=== PATIENT | female | born 1995 | race Caucasian/White ===

== ENCOUNTER 2016-10-22 15:51 | Emergency (ER) | payer SELFPAY ==
[~2016-10-22 15:51] MED LIST: PREN1CHW PO
[2016-10-22 15:52] VITALS: BP 144/77; PULSE 89; RESP 15; TEMP 98.2; O2SAT 98
--- NOTE | 2016-10-22 16:01 | PD ---
Physical Exam Time Seen by Provider: 16:00 Narrative 21 y/o female here with dental pain for 2 weeks. She says she chipped a tooth. Currently taking antibiotics, ibuprofen but pain persists. Vital signs reviewed. Seen at triage desk. Awaiting bed placement. Data Data Last Documented VS Vital Signs Date Time Temp Pulse Resp B/P Pulse Ox O2 Delivery O2 Flow Rate FiO2 10/22/16 15:52 98.2 89 15 144/77 98 MDM Medical Record Reviewed: Yes Supervised Visit with COLEMAN: No Warner Trivedi Oct 22, 2016 16:01
--- NOTE | 2016-10-22 16:37 | PD ---
HPI Chief Complaint: Oral / Dental Pain or Problem Time Seen by Provider: 16:32 Travel History International Travel<30 days: No Contact w/Intl Traveler<30days: No Traveled to known affect area: No History of Present Illness HPI 21-year-old female presents the emergency Department with dental pain and abscess to the #16 tooth. Patient states she's been on penicillin for the last 2 days. Patient states the swelling seems to improve but her pain continues. Patient was given ibuprofen but this is not helping. She's been using [id number] Orajel with some relief, however she complains of sensitivity to hot and cold and difficulty eating due to the pain. She denies swelling or difficulty swallowing. She denies fever or chills. Patient does have a appointment with a dentist next Tuesday. She has no known drug allergies. PFSH Past Medical History : 3 Para: 1 Past Surgical History Section: Yes Other Surgery: Yes () Social History Alcohol Use: No Tobacco Use: No Substance Use: No Allergies-Medications (Allergen,Severity, Reaction): Coded Allergies: No Known Allergies (Unverified , 04/21/16) Reported Meds & Prescriptions Reported Meds & Active Scripts Active Reported Select-Ob 29-0.6-0.4 mg ( Vit W/ Iron Polysacch) 1 Chw Chw PO Review of Systems Except as stated in HPI: all other systems reviewed are Neg General / Constitutional: No: Fever Eyes: No: Visual changes HENT: Positive: Dental Difficulties, Earache, No: Headaches, Vertigo, Lightheadedness, Sore Throat, Rhinitis, Rhinorrhea, Congestion, Nosebleed, Neck Stiffness, Neck Pain, Masses, Gingival Bleeding, Ear Discharge, Other Cardiovascular: No: Chest Pain or Discomfort Respiratory: No: Shortness of Breath Gastrointestinal: No: Abdominal Pain Genitourinary: No: Dysuria Musculoskeletal: No: Pain Skin: No Rash Neurologic: No: Weakness Psychiatric: No: Depression Endocrine: No: Polydipsia Hematologic/Lymphatic: No: Easy Bruising Physical Exam Narrative GENERAL: Patient appears in mild to moderate distress. SKIN: Warm and dry. Normal color. Normal turgor. HEAD: Atraumatic. Normocephalic. EYES: Pupils equal and round. No scleral icterus. No injection or drainage. ENT: No nasal bleeding or discharge. Mucous membranes pink and moist. Patient' s large caries to the #16 tooth with localized tenderness and swelling. No significant dental abscess is noted. TMs are clear bilaterally. Pharynx is clear. Airway is patent. NECK: Trachea midline. Supple and nontender without lymphadenopathy. CARDIOVASCULAR: Regular rate and rhythm. No murmurs gallops or rubs. RESPIRATORY: No accessory muscle use. Clear to auscultation. Breath sounds equal bilaterally. MUSCULOSKELETAL: Extremities without clubbing, cyanosis, or edema. No obvious deformities. NEUROLOGICAL: Awake and alert. No obvious cranial nerve deficits. Motor grossly within normal limits. Five out of 5 muscle strength in the arms and legs. Normal speech. PSYCHIATRIC: Appropriate mood and affect; insight and judgment normal. Data Data Last Documented VS Vital Signs Date Time Temp Pulse Resp B/P Pulse Ox O2 Delivery O2 Flow Rate FiO2 10/22/16 15:52 98.2 89 15 144/77 98 Orders Mzqq-Gfwp-Rnzr Liq (Magic Mouthwash Adul (10/22/16 16:45) [facility] Medical Decision Making Medical Screen Exam Complete: Yes Emergency Medical Condition: Yes Differential Diagnosis Dental caries. Dental abscess. Dental pain. Narrative Course Patient is medically stable at time of exam. Trial of Magic mouthwash by mouth, is given to the patient. Patient feels improvement after the Magic mouthwash. Patient will be continued Magic mouthwash 5-10 mL's every 2 hours when necessary dental pain. 120 mg with 1 refill. Patient is given a prescription for ibuprofen 600 mg 4 times a day #40. Patient also given a prescription for acetaminophen 500 mg 2 tabs every 6 hours when necessary #60. Patient is to continue the penicillin as previously prescribed. Patient should follow-up with her dentist as currently scheduled. Patient can return to emergency Department with worsening symptoms if necessary. Diagnosis Primary Impression: Dental caries Additional Impression: Pain due to dental caries Referrals: Dentist Patient Instructions: Dental Abscess (ED), General Instructions Additional Instructions: Trial of Magic mouthwash by mouth, is given to the patient. Patient feels improvement after the Magic mouthwash. Patient will be continued Magic mouthwash 5-10 mL's every 2 hours when necessary dental pain. 120 mg with 1 refill. Patient is given a prescription for ibuprofen 600 mg 4 times a day #40. Patient also given a prescription for acetaminophen 500 mg 2 tabs every 6 hours when necessary #60. Patient is to continue the penicillin as previously prescribed. Patient should follow-up with her dentist as currently scheduled. Patient can return to emergency Department with worsening symptoms if necessary. Med/Other Pt SpecificInfo: Prescription(s) given Disposition: 01 DISCHARGE HOME Condition: Stable Gary Duval Oct 22, 2016 16:37
[2016-10-22] MEDS ORDERED: NYSTAT/DIPHENHY/LIDO MOUTHWASH (Adult) 120ML SWISH-SPIT ONE (16:45)
[2016-10-22] MEDS ORDERED: NON-500T13 PO (16:57)
[2016-10-22] MEDS ORDERED: IBUP-232 PO (16:57)
[2016-10-22] MEDS ORDERED: MAGICADU2 SWISH-SPIT (16:57)
== END 2016-10-22 17:33 | disposition home or self-care (01) ==
LOC: NEPK 15:51
DX: K02.9 Dental caries, unspecified (principal)
CPT/HCPCS: 99283

== ENCOUNTER 2016-10-29 13:55 | Emergency (ER) | payer SELFPAY ==
[~2016-10-29] VITALS: Ht 165.1 cm; Wt 50.0 kg
[~2016-10-29 13:55] MED LIST changes: +IBUP-232 PO; +MAGICADU2 SWISH-SPIT; +NON-500T13 PO
[2016-10-29 13:56] VITALS: BP 146/95; PULSE 85; RESP 24; TEMP 98.5; O2SAT 99
--- NOTE | 2016-10-29 14:00 | PD ---
Data Data Last Documented VS Vital Signs Date Time Temp Pulse Resp B/P Pulse Ox O2 Delivery O2 Flow Rate FiO2 10/29/16 13:56 98.5 85 24 146/95 99 Room Air MDM Supervised Visit with COLEMAN: No Narrative Course 21 YO F with complaint of "wisdom tooth" pain. Intermittent for "weeks." Recently completed antibiotics, has seen a dentist. Vitals reviewed. Awaiting bed placement. Sabrina Louis Oct 29, 2016 14:00
--- NOTE | 2016-10-29 14:22 | PD ---
HPI Chief Complaint: Oral / Dental Pain or Problem Time Seen by Provider: 14:21 Travel History International Travel<30 days: No Contact w/Intl Traveler<30days: No Traveled to known affect area: No History of Present Illness HPI 21-year-old female presents emergency Department with complaint of a crack to her left upper wisdom tooth that is causing her pain on and off for the past few weeks. She saw a dentist and was put on antibiotics but she has completed and they will not see her again because she cannot afford to pay, and they will not set her up on a payment plan. She was also seen here on October 22 for the same complaint. Denies fever, vomiting. Pain is worse with hot and cold. She has been using Magic mouthwash, Orajel, and taking ibuprofen with no relief of symptoms. She has no other medical complaints. No known allergies. No other modifying factors or associated signs and symptoms. PFSH Past Medical History ?: Not : 3 Para: 1 Past Surgical History Section: Yes Other Surgery: Yes () Social History Alcohol Use: No Tobacco Use: Yes Substance Use: No Allergies-Medications (Allergen,Severity, Reaction): Coded Allergies: No Known Allergies (Unverified , 10/29/16) Reported Meds & Prescriptions Reported Meds & Active Scripts Active Magic Mouthwash Adult Liq (Multi-Ingredient Mouthwash/Gargle) 120 Ml Susp 5-10 Ml SWISH-SPIT ACHS Each 5 mL contains: Nystatin 200,000 units, Diphenhydramine 4.25 mg, Viscous Lidocaine 10 mg, Davis syrup 0.8 mL Ibuprofen 600 Mg Tab 600 Mg PO Q6H PRN Non-Aspirin Pain Relief ES (Acetaminophen) 500 Mg Tab 500 Mg PO Q6HR PRN Reported Select-Ob 29-0.6-0.4 mg ( Vit W/ Iron Polysacch) 1 Chw Chw PO Review of Systems Except as stated in HPI: all other systems reviewed are Neg Physical Exam Narrative GENERAL: Well-nourished, well-developed female patient, in no acute distress; afebrile, nontoxic-appearing; tearful SKIN: Warm and dry. HEAD: Atraumatic. Normocephalic. No facial edema, erythema, tenderness on palpation. No lymphadenopathy. EYES: Pupils equal and round. No scleral icterus. No injection or drainage. ENT: Mucosa pink and moist. Airway patent. MOUTH: Mucous membranes moist, no lesions, tongue and gums appear normal. Tooth #16 with part of the tooth missing.. Surrounding gingiva is without erythema, edema, drainage. No obvious abscess noted. NECK: Trachea midline. No lymphadenopathy. CARDIOVASCULAR: Regular rate. RESPIRATORY: No accessory muscle use. GASTROINTESTINAL: Flat. MUSCULOSKELETAL: No obvious deformities. No clubbing. No cyanosis. No edema. NEUROLOGICAL: Awake and alert. Oriented 3. No obvious cranial nerve deficits. Motor grossly within normal limits. Normal speech. PSYCHIATRIC: Appropriate mood and affect; insight and judgment normal. Data Data Last Documented VS Vital Signs Date Time Temp Pulse Resp B/P Pulse Ox O2 Delivery O2 Flow Rate FiO2 10/29/16 13:56 98.5 85 24 146/95 99 Room Air Orders Ketorolac Inj (Toradol Inj) (10/29/16 14:30) MDM Medical Decision Making Medical Screen Exam Complete: Yes Emergency Medical Condition: Yes Medical Record Reviewed: Yes Differential Diagnosis Dentalgia, cracked tooth, dental trauma, infected dental caries Narrative Course 21-year-old female with left upper wisdom tooth that is cracked and causing tooth pain. Patient was previously treated with penicillin and has not followed up with a dentist due to finances. She is afebrile and nontoxic- appearing. She denies fever, vomiting. Emergency information dental sheet provided. Instructed patient to follow up with dentist. Toradol administered in the ER. Patient verbalizes understanding and agreement with treatment plan. Patient is medically cleared and stable for discharge. Discussed reasons to return to the emergency department. Instructed patient to follow up with primary care provider. Patient agrees with treatment plan. The patients vital signs are stable and the patient is stable for outpatient follow-up and treatment. Patient discharged home, stable and in no acute distress. Diagnosis Primary Impression: Cracked tooth Additional Impression: Dentalgia Referrals: [facility] Dentist Primary Care Physician Patient Instructions: General Instructions, Toothache (ED) Departure Forms: Tests/Procedures Additional Instructions: Complete full course of antibiotics Ibuprofen or Tylenol as directed and as needed to reduce pain and inflammation Use Magic mouthwash rinse as directed and as needed to decrease pain Warm or cool compresses to the affected area Follow-up with dentist Follow-up with primary care provider Return to emergency department immediately with worsening of symptoms Med/Other Pt SpecificInfo: No Change to Meds, No Meds Exist/No RX given Disposition: 01 DISCHARGE HOME Condition: Stable Lynn Koo Oct 29, 2016 14:22
[2016-10-29] MEDS ORDERED: KETOROLAC TROMETHAMINE 60 MG/2 ML (IM) VIAL IM ONE (14:30)
== END 2016-10-29 14:57 | disposition home or self-care (01) ==
LOC: NEPK 13:55
DX: K03.81 Cracked tooth (principal); Z72.0 Tobacco use
CPT/HCPCS: 96372; 99284; J1885

== ENCOUNTER 2016-10-31 09:54 | Emergency (ER) | payer SELFPAY ==
[~2016-10-31] VITALS: Ht 165.1 cm; Wt 50.0 kg
[2016-10-31 09:59] VITALS: BP 138/80; PULSE 77; RESP 15; TEMP 98.2; O2SAT 98
[2016-10-31] MEDS ORDERED: LIDOCAINE HCL 1% PF 30 ML VIAL INFIL ONE (10:45)
[2016-10-31] MEDS ORDERED: BUPIVACAINE HCL PF 0.5% 10 ML VIAL INFIL ONE (10:45)
[2016-10-31] MEDS ORDERED: MAGICADU2 SWISH-SWAL (10:47)
[2016-10-31] MEDS ORDERED: DICL75TA PO (10:47)
--- NOTE | 2016-10-31 10:52 | PD ---
HPI Chief Complaint: Oral / Dental Pain or Problem Time Seen by Provider: 10:35 Travel History International Travel<30 days: No Contact w/Intl Traveler<30days: No Traveled to known affect area: No History of Present Illness HPI 21-year-old female presents for evaluation of dental pain. Symptoms started 2 weeks ago. The pain is a throbbing pain, constant, localized to the left maxillary third molar, pain is worse with chewing, unrelieved with over-the- counter Tylenol and Motrin. This is her third visit here for evaluation of this dental pain. She reports that she has an appointment with a dentist in 2 days in order to have the tooth extracted. She has no other complaints at this time. PFSH Past Medical History ?: Not : 3 Para: 1 Past Surgical History Section: Yes Other Surgery: Yes () Social History Alcohol Use: No Tobacco Use: Yes Substance Use: No Allergies-Medications (Allergen,Severity, Reaction): Coded Allergies: No Known Allergies (Unverified , 10/31/16) Reported Meds & Prescriptions Reported Meds & Active Scripts Active Magic Mouthwash Adult Liq (Multi-Ingredient Mouthwash/Gargle) 120 Ml Susp 10 Ml SWISH-SWAL ACHS Each 5mL contains: Nystatin 200,000units, Diphenhydramine 4.25mg, Viscous Lidocaine 10mg, Davis syrup 0.[address] (Diclofenac Sodium) 75 Mg Tabdr 75 Mg PO BID 7 Days Review of Systems General / Constitutional: No: Fever, Chills HENT: Positive: Dental Difficulties Physical Exam Narrative GENERAL: Well-developed well-nourished female in no acute distress SKIN: Warm and dry. HEAD: Atraumatic. Normocephalic. EYES: Pupils equal and round. No scleral icterus. No injection or drainage. ENT: No nasal bleeding or discharge. Mucous membranes pink and moist. Left maxillary third molar somewhat decayed, tender to palpation. There is no gingival edema, facial pain, trismus. NECK: Trachea midline. No JVD. No lymphadenopathy or submandibular edema. Data Data Last Documented VS Vital Signs Date Time Temp Pulse Resp B/P Pulse Ox O2 Delivery O2 Flow Rate FiO2 10/31/16 09:59 98.2 77 15 138/80 98 Orders Lidocaine Pf 1% Inj (Xylocaine-Mpf 1% In (10/31/16 10:45) Bupivacaine Pf 0.5% Inj (Marcaine Pf 0.5 (10/31/16 10:45) MDM Medical Decision Making Medical Screen Exam Complete: Yes Emergency Medical Condition: Yes Medical Record Reviewed: Yes Differential Diagnosis Dental caries, pulpitis, pericoronitis, periodontal abscess, dental fracture Narrative Course 21-year-old female presents with dental pain localized to the left maxillary third molar. After verbal consent was obtained a posterior superior alveolar nerve block was performed with complete resolution of her pain. One percent lidocaine, 0.5% Marcaine was utilized. Discharged with nonnarcotic pain medication. Procedures Procedure Narrative Posterior superior alveolar nerve block: Performed using total of 3 mL of 1% lidocaine, 0.5% Marcaine. Patient tolerated procedure well. Diagnosis Primary Impression: Dentalgia Additional Instructions: Follow-up with dentist as scheduled for definitive therapy. Medication as needed. Med/Other Pt SpecificInfo: Prescription(s) given Scripts Wrhzljau-Nmceigfbwxmquge-Hslcbxxrp Liq (Magic Mouthwash Adult Liq)120 Ml Susp10 Ml SWISH-SWAL ACHS #120 ML Ref 1 Each 5mL contains: Nystatin 200,000units, Diphenhydramine 4.25mg, Viscous Lidocaine 10mg, Davis syrup 0.8 mL Prov:Malika Euceda MD 10/31/[address] 75 Mg Tabdr75 Mg PO BID 7 Days Ref 0 Prov:aMlika Euceda MD 10/31/16 Disposition: 01 DISCHARGE HOME Condition: Stable Warner Trivedi Oct 31, 2016 10:52
== END 2016-10-31 11:05 | disposition home or self-care (01) ==
LOC: NEPA 09:54
DX: K08.89 Other specified disorders of teeth and supporting structures (principal); Z72.0 Tobacco use
CPT/HCPCS: 64400

== ENCOUNTER 2017-05-10 10:36 | Emergency (ER) | payer SELFPAY ==
[~2017-05-10] VITALS: Ht 165.1 cm; Wt 55.0 kg
[2017-05-10 10:36] VITALS: BP 114/61; PULSE 87; RESP 16; TEMP 98.6; O2SAT 98
[~2017-05-10 10:36] MED LIST changes: +DICL75TA PO; -IBUP-232 PO; -MAGICADU2 SWISH-SPIT; +MAGICADU2 SWISH-SWAL; -NON-500T13 PO; -PREN1CHW PO
[2017-05-10] MEDS ORDERED: PENI500T PO (11:15)
--- NOTE | 2017-05-10 11:15 | PD ---
HPI Chief Complaint: ENT Complaint Time Seen by Provider: 10:47 Travel History International Travel<30 days: No Contact w/Intl Traveler<30days: No Traveled to known affect area: No History of Present Illness HPI This is a 21-year-old female here with sore throat and fever times one day. She reports her son has strep pharyngitis. Symptom severity is mild. No aggravating or alleviating factors. PFSH Past Medical History Medical History: Denies Significant Hx ?: Not LMP: 04/2017 : 3 Para: 1 Past Surgical History Section: Yes Other Surgery: Yes () Social History Alcohol Use: No Tobacco Use: Yes Substance Use: No Allergies-Medications (Allergen,Severity, Reaction): Coded Allergies: No Known Allergies (Unverified Adverse Reaction, Unknown, 05/10/17) Reported Meds & Prescriptions Reported Meds & Active Scripts Active No Active Prescriptions or Reported Medications Review of Systems General / Constitutional: Positive: Fever HENT: Positive: Sore Throat Physical Exam Narrative GENERAL: Alert female well-appearing. SKIN: Warm and dry. HEAD: Normocephalic. EYES: No scleral icterus. No injection or drainage. THROAT: Pharyngeal erythema with mild tonsillar hypertrophy small amount x-ray. NECK: Supple, trachea midline. No JVD or lymphadenopathy. No meningismus. Data Data Last Documented VS Vital Signs Date Time Temp Pulse Resp B/P (MAP) Pulse Ox O2 Delivery O2 Flow Rate FiO2 05/10/17 10:36 98.6 87 16 114/61 (78) 98 Room Air MDM Medical Decision Making Medical Screen Exam Complete: Yes Emergency Medical Condition: Yes Differential Diagnosis Strep pharyngitis, viral pharyngitis, URI Narrative Course 21-year-old female here with sore throat. Exposure to strep pharyngitis. Patient has mild tonsillar hypertrophy with exudate. She'll be treated with Pen -Vee K Diagnosis Primary Impression: Pharyngitis Qualified Codes: J02.9 - Acute pharyngitis, unspecified Referrals: [facility] Departure Forms: Tests/Procedures, Work Release Enter return to work date: May 11, 2017 Scripts Penicillin V Potassium (Penicillin V Potassium) 500 Mg Tab 500 MG PO BID for Infection for 10 Days, #20 TAB 0 Refills Prov: Alie Pradhan 05/10/17 Disposition: 01 DISCHARGE HOME Condition: Stable Alie Pradhan May 10, 2017 11:15
== END 2017-05-10 11:38 | disposition home or self-care (01) ==
LOC: NEPK 10:36
DX: J02.9 Acute pharyngitis, unspecified (principal); Z72.0 Tobacco use
CPT/HCPCS: 99283

== ENCOUNTER 2017-06-03 08:51 | Emergency (ER) | payer SELFPAY ==
[~2017-06-03] VITALS: Ht 165.1 cm; Wt 55.0 kg
[~2017-06-03 08:51] MED LIST changes: -DICL75TA PO; -MAGICADU2 SWISH-SWAL; +PENI500T PO
[2017-06-03 08:53] VITALS: BP 106/56; PULSE 122; RESP 12; TEMP 100.7; O2SAT 97
== END 2017-06-03 11:20 | disposition left against medical advice (07) ==
LOC: NED 08:51
DX: J00 Acute nasopharyngitis [common cold] (principal)
CPT/HCPCS: 99281

== ENCOUNTER 2017-10-30 17:40 | Emergency (ER) | payer SELFPAY ==
[~2017-10-30] VITALS: Ht 165.1 cm; Wt 50.9 kg
[2017-10-30 17:43] VITALS: BP 104/67; PULSE 81; RESP 16; TEMP 98.3; O2SAT 96
[2017-10-30] MEDS ORDERED: SODIUM CHLOR 0.9% 1000 ML INJ 1,000 ML IV SCH (18:40)
--- NOTE | 2017-10-30 18:42 | PD ---
HPI Chief Complaint: GI Complaint Time Seen by Provider: 18:30 Travel History International Travel<30 days: No Contact w/Intl Traveler<30days: No Traveled to known affect area: No History of Present Illness HPI Patient presents for abdominal pain secondary to possible "alcohol poisoning." She states that she had 5 shots and 5 drinks on yesterday and has had abdominal pain nausea vomiting since. Pain is described as being epigastric, 7 out of 10 , constant, nonradiating, worse with eating, no alleviating factors. Is also reporting vomiting clear/yellow fluid. Ports 8 out of 10 headache, but denies fall or hitting her head or LOC. Unsure fever or chills but states that she has had cold sweats and denies back pain. PFSH Past Medical History ?: Not LMP: 10/05/2017 : 3 Para: 1 Past Surgical History Section: Yes Other Surgery: Yes () Social History Alcohol Use: No Tobacco Use: Yes Substance Use: No Allergies-Medications (Allergen,Severity, Reaction): Coded Allergies: No Known Allergies (Unverified Adverse Reaction, Unknown, 10/30/17) Reported Meds & Prescriptions Reported Meds & Active Scripts Active Penicillin V Potassium 500 Mg Tab 500 Mg PO BID 10 Days Review of Systems Except as stated in HPI: all other systems reviewed are Neg Physical Exam Narrative GENERAL: No acute distress. SKIN: Focused skin assessment warm/dry. HEAD: Atraumatic. Normocephalic. EYES: Pupils equal and round. No scleral icterus. No injection or drainage. ENT: No nasal bleeding or discharge. Mucous membranes dry. NECK: Trachea midline. No JVD. CARDIOVASCULAR: Regular rate and rhythm. No murmur appreciated. RESPIRATORY: No accessory muscle use. Clear to auscultation. Breath sounds equal bilaterally. GASTROINTESTINAL: Abdomen soft, epigastric tenderness, nondistended. Hepatic and splenic margins not palpable. MUSCULOSKELETAL: No obvious deformities. No clubbing. No cyanosis. No edema. NEUROLOGICAL: Awake and alert. No obvious cranial nerve deficits. Motor grossly within normal limits. Normal speech. PSYCHIATRIC: Appropriate mood and affect; insight and judgment normal. Data Data Last Documented VS Vital Signs Date Time Temp Pulse Resp B/P (MAP) Pulse Ox O2 Delivery O2 Flow Rate FiO2 10/30/17 17:43 98.3 81 16 104/67 (79) 96 Orders Orders Complete Blood Count With Diff (10/30/17 18:40) Comprehensive Metabolic Panel (10/30/17 18:40) Lipase (10/30/17 18:40) Ct Abd/Pel W Iv Contrast(Rout) (10/30/17 18:40) Iv Access Insert/Monitor (10/30/17 18:40) Ecg Monitoring (10/30/17 18:40) Oximetry (10/30/17 18:40) Sodium Chlor 0.9% 1000 Ml Inj (Ns 1000 M (10/30/17 18:40) Sodium Chloride 0.9% Flush (Ns Flush) (10/30/17 18:45) Ed Urine Pregnancytest Poc (10/30/17 18:40) Ondansetron Odt (Zofran Odt) (10/30/17 18:45) Morphine Inj (Morphine Inj) (10/30/17 18:45) MDM Medical Decision Making Medical Screen Exam Complete: Yes Emergency Medical Condition: Yes Differential Diagnosis Gastritis, peptic ulcer disease, pancreatitis, cholecystitis, Narrative Course She presents to the emergency department complaining of abdominal pain and nausea vomiting after alcohol ingestion yesterday. Patient placed on the monitor and storage bin tender, IV access obtained, and CT/labs/IV fluids/Zofran 4 mg ODT/2 mg IV morphine ordered. Patient will be sent on to Dr. Wilkins for lab and CT results and final disposition. Josefa Benavides MD Oct 30, 2017 18:42
[2017-10-30] MEDS ORDERED: SODIUM CHLORIDE 0.9% FLUSH 10 ML FLUSH IV FLUSH PRN (18:45)
[2017-10-30] MEDS ORDERED: ONDANSETRON ODT 4 MG TAB PO ONE (18:45)
[2017-10-30] MEDS ORDERED: MORPHINE SULFATE 2 MG/ML SYRINGE IV PUSH ONE (18:45)
[2017-10-30 19:00] VITALS: RESP 15; O2SAT 99
[2017-10-30 19:14] LABS: AUTOMATED NEUTROPHIL # 11.7 TH/MM3 (1.8-7.7); BASOPHIL # 0.5 TH/MM3 (0-0.2); BASOPHIL % 3.5 % (0.0-2.0); EOSINOPHIL # 0.1 TH/MM3 (0-0.4); EOSINOPHIL % 0.6 % (0.0-4.0); HEMATOCRIT 43.7 % (35.0-46.0); HEMOGLOBIN 14.3 GM/DL (11.6-15.3); LYMPH % 11.5 % (9.0-44.0); LYMPHOCYTE # 1.7 TH/MM3 (1.0-4.8); MEAN CORPUSCULAR HEMOGLOBIN 27.4 PG (27.0-34.0); MEAN CORPUSCULAR HGB CONC 32.6 % (32.0-36.0); MEAN PLATELET VOLUME 8.2 FL (7.0-11.0); MONO % 3.1 % (0.0-8.0); MONOCYTE # 0.4 TH/MM3 (0-0.9); NEUT % 81.3 % (16.0-70.0); PLATELET COUNT 284 TH/MM3 (150-450); RED CELL DISTRIBUTION WIDTH 12.3 % (11.6-17.2); WHITE BLOOD COUNT 14.4 TH/MM3 (4.0-11.0)
--- NOTE | 2017-10-30 19:17 | PD ---
Physical Exam Date Seen by Provider: Oct 30, 2017 Time Seen by Provider: 19:15 Narrative Accepted in transfer of care from Dr. Benavides @ 8:45 GENERAL: Well-developed well-nourished female no acute distress no respiratory distress SKIN: Warm and dry. GASTROINTESTINAL: Abdomen soft, non-tender, nondistended. Data Data Last Documented VS Vital Signs Date Time Temp Pulse Resp B/P (MAP) Pulse Ox O2 Delivery O2 Flow Rate FiO2 10/30/17 20:15 16 10/30/17 19:00 99 Room Air 10/30/17 17:43 98.3 81 104/67 (79) Orders Orders Complete Blood Count With Diff (10/30/17 18:40) Comprehensive Metabolic Panel (10/30/17 18:40) Lipase (10/30/17 18:40) Ct Abd/Pel W Iv Contrast(Rout) (10/30/17 18:40) Iv Access Insert/Monitor (10/30/17 18:40) Ecg Monitoring (10/30/17 18:40) Oximetry (10/30/17 18:40) Sodium Chlor 0.9% 1000 Ml Inj (Ns 1000 M (10/30/17 18:40) Sodium Chloride 0.9% Flush (Ns Flush) (10/30/17 18:45) Ed Urine Pregnancytest Poc (10/30/17 18:40) Ondansetron Odt (Zofran Odt) (10/30/17 18:45) Morphine Inj (Morphine Inj) (10/30/17 18:45) Iohexol 350 Inj (Omnipaque 350 Inj) (10/30/17 20:00) Ed Discharge Order (10/30/17 20:46) Labs Laboratory Tests Test 10/30/17 19:00 White Blood Count 14.4 TH/MM3 Red Blood Count 5.20 MIL/MM3 Hemoglobin 14.3 GM/DL Hematocrit 43.7 % Mean Corpuscular Volume 84.0 FL Mean Corpuscular Hemoglobin 27.4 PG Mean Corpuscular Hemoglobin Concent 32.6 % Red Cell Distribution Width 12.3 % Platelet Count 284 TH/MM3 Mean Platelet Volume 8.2 FL Neutrophils (%) (Auto) 81.3 % Lymphocytes (%) (Auto) 11.5 % Monocytes (%) (Auto) 3.1 % Eosinophils (%) (Auto) 0.6 % Basophils (%) (Auto) 3.5 % Neutrophils # (Auto) 11.7 TH/MM3 Lymphocytes # (Auto) 1.7 TH/MM3 Monocytes # (Auto) 0.4 TH/MM3 Eosinophils # (Auto) 0.1 TH/MM3 Basophils # (Auto) 0.5 TH/MM3 CBC Comment DIFF FINAL Differential Comment Blood Urea Nitrogen 12 MG/DL Creatinine 0.74 MG/DL Random Glucose 63 MG/DL Total Protein 8.3 GM/DL Albumin 4.3 GM/DL Calcium Level 9.2 MG/DL Alkaline Phosphatase 78 U/L Aspartate Amino Transf (AST/SGOT) 20 U/L Alanine Aminotransferase (ALT/SGPT) 23 U/L Total Bilirubin 0.5 MG/DL Sodium Level 139 MEQ/L Potassium Level 3.9 MEQ/L Chloride Level 106 MEQ/L Carbon Dioxide Level 24.3 MEQ/L Anion Gap 9 MEQ/L Estimat Glomerular Filtration Rate 96 ML/MIN Lipase 101 U/L MDM Medical Record Reviewed: Yes Supervised Visit with [facility]: No Interpretation(s) CBC & BMP Diagram 10/30/17 19:00 Total Protein 8.3 H, Albumin 4.3, Calcium Level 9.2, Alkaline Phosphatase 78, Aspartate Amino Transf (AST/SGOT) 20, Alanine Aminotransferase (ALT/SGPT) 23, Total Bilirubin 0.5 Vital Signs Date Time Temp Pulse Resp B/P (MAP) Pulse Ox O2 Delivery O2 Flow Rate FiO2 10/30/17 19:00 15 99 Room Air 10/30/17 17:43 98.3 81 16 104/67 (79) 96 POC hcg: negative Last Impressions Abdomen/Pelvis CT 10/30/17 1840 Signed Impressions: CONCLUSION: 1. No acute findings on abdomen and pelvic CT. Differential Diagnosis Accepted in transfer of care from Dr. Benavides; please refer to her dictation Narrative Course Accepted in transfer of care from Dr. Benavides; follow up pending studies and disposition At 8:[address] abdomen pelvis is resulted and reveals no acute abnormality lab values remarkable for nonspecific white count of 14,000 most likely reflective of patient's hydration status gastritis and stress demargination Patient informed of imaging results lab results in a stable for outpatient management with encouragement to follow-up with her managing/primary care provider and encouraged to use [id number] Zantac 150 twice daily for 7-14 days and to avoid alcohol consumption. Diagnosis Primary Impression: Gastritis Referrals: Primary Care Physician call for appointment Patient Instructions: General Instructions Additional Instruction: Increase fluid hydration Avoid use of nonsteroidal anti-inflammatory medication such as ibuprofen/Advil/ Motrin/Naprosyn/naproxen/Aleve Do not drink alcoholic beverages Use [id number] Zantac 150 twice daily for 7-14 days Return to the emergency department for any concerns or change in condition Follow-up with your primary care provider Scripts No Active Prescriptions or Reported Meds Disposition: 01 DISCHARGE HOME Condition: Stable Chrissie Wilkins MD Oct 30, 2017 19:17
[2017-10-30 19:22] LABS: CHLORIDE 106 MEQ/L (98-107); SODIUM (NA) 139 MEQ/L (136-145)
[2017-10-30 19:25] LABS: ALBUMIN 4.3 GM/DL (3.4-5.0); BICARBONATE 24.3 MEQ/L (21.0-32.0); CALCIUM 9.2 MG/DL (8.5-10.1); GLUCOSE,RANDOM 63 MG/DL (74-106)
[2017-10-30 19:26] LABS: BLOOD UREA NITROGEN 12 MG/DL (7-18)
[2017-10-30 19:28] LABS: ALT (GPT) 23 U/L (10-53); AST (GOT) 20 U/L (15-37); CREATININE 0.74 MG/DL (0.50-1.00); GLOMERULAR FILTRATION RATE 96 ML/MIN (>89)
[2017-10-30 19:30] LABS: TOTAL BILIRUBIN ADULT 0.5 MG/DL (0.2-1.0); TOTAL PROTEIN 8.3 GM/DL (6.4-8.2)
[2017-10-30 19:31] LABS: ALKALINE PHOSPHATASE 78 U/L (45-117)
[2017-10-30] MEDS ORDERED: IOHEXOL 350 MG/ML 10 ML VIAL (for RAD DIAG) IVCONTRAST ONE (20:00)
[2017-10-30 20:15] VITALS: RESP 16
--- NOTE | 2017-10-30 20:21 | RADRPT ---
EXAM DATE: 10/30/2017 8:05 PM EDT AGE/SEX: 22 years / Female INDICATIONS: Epigastric pain, nausea and vomiting. CLINICAL DATA: This is the patient's initial encounter. Patient reports that signs and symptoms have been present for 1 day and indicates a pain score of 7/10. MEDICAL/SURGICAL HISTORY: None. section. ORAL CONTRAST: No oral contrast ingested. RADIATION DOSE: 4.61 CTDI (mGy) COMPARISON: No prior exams available for comparison. TECHNIQUE: Multiple contiguous axial images were obtained through the abdomen and pelvis following b olus infusion of 85 ml Omnipaque 350 (iohexol) nonionic water-soluble contrast as a single exam dos e. No oral contrast ingested. Using automated exposure control and adjustment of the mA and/or kV ac cording to patient size, the radiation dose was kept as low as reasonably achievable to obtain optima l diagnostic quality images. FINDINGS: Lung bases are clear. No acute findings in the liver, spleen, adrenals, kidneys or pancreas. No calci fied gallstones or biliary ductal dilatation. No free fluid or free air. No bowel obstruction. No adenopathy. CONCLUSION: 1. No acute findings on abdomen and pelvic CT. Electronically signed by: Keyon Benoit MD 10/30/2017 8:20 PM EDT
[2017-10-30 21:01] VITALS: BP 102/63
== END 2017-10-30 21:04 | disposition home or self-care (01) ==
LOC: PHED 17:40
DX: K29.70 Gastritis, unspecified, without bleeding (principal); Z72.0 Tobacco use
CPT/HCPCS: 74177; 80053; 83690; 84703; 85025; 96361; 96374; 99284; J2270; J7030; Q9967